=== PATIENT | male | born 2000 | race Caucasian/White ===

== ENCOUNTER 2022-05-25 04:40 | Emergency (ER) | payer SELFPAY ==
[~2022-05-25] VITALS: Ht 180.3 cm; Wt 70.0 kg
[2022-05-25] MEDS ORDERED: LIDOCAINE HCL/EPINEPHRINE 1%-EPI 1:100,000 20 ML VIAL INFIL ONE (06:00)
[2022-05-25] MEDS ORDERED: LIDOCAINE HCL/EPINEPHRINE 1%-EPI 1:100,000 10 ML VIAL INFIL NR (06:15)
[2022-05-25] MEDS ORDERED: IBUPROFEN 600MG TABLET PO ONE (07:15)
[2022-05-25] MEDS ORDERED: IBUP-2029 MT (07:20)
[2022-05-25] MEDS ORDERED: CEPH500C2 MT (07:20)
[2022-05-25 07:51] VITALS: BP 115/54
== END 2022-05-25 08:54 ==
LOC: ER 04:40
DX: S01.511A Laceration without foreign body of lip, initial encounter (principal); S30.0XXA Contusion of lower back and pelvis, initial encounter; X58.XXXA Exposure to other specified factors, initial encounter; Y93.89 Activity, other specified; Y92.89 Other specified places as the place of occurrence of the external cause; Y99.8 Other external cause status
CPT/HCPCS: 12013; 99283; J3490

== ENCOUNTER 2022-06-01 14:45 | Emergency (ER) | payer SELFPAY ==
[~2022-06-01] VITALS: Ht 175.3 cm; Wt 82.0 kg
[~2022-06-01 14:45] MED LIST: CEPH500C2 MT; IBUP-2029 MT
[2022-06-01 15:05] VITALS: BP 125/70
== END 2022-06-01 17:29 | disposition left against medical advice (07) ==
LOC: ER 14:48
DX: Z53.21 Procedure and treatment not carried out due to patient leaving prior to being seen by health care provider (principal)

== ENCOUNTER 2022-06-02 07:09 | Emergency (ER) | payer SELFPAY ==
[~2022-06-02] VITALS: Ht 175.3 cm; Wt 82.0 kg
[2022-06-02 07:34] VITALS: BP 120/66
== END 2022-06-02 10:08 | disposition home or self-care (01) ==
LOC: ER 07:09
DX: S01.511D Laceration without foreign body of lip, subsequent encounter (principal); X58.XXXD Exposure to other specified factors, subsequent encounter; Z88.5 Allergy status to narcotic agent
CPT/HCPCS: 99281; Z7610